=== PATIENT | female | born 1930 | race Two or more races ===

== ENCOUNTER 2022-03-11 16:21 | Inpatient (IN) | payer MEDICARE ==
[~2022-03-11] VITALS: Ht 152.4 cm; Wt 62.6 kg
--- NOTE | 2022-03-11 16:25 | NUR ---
BIB [facility] FROM HOME,C/O NAUSEA AND WEAKNESS
--- NOTE | 2022-03-11 16:30 | NUR ---
established IV line g20 right hand, draw blood sent to lab
--- NOTE | 2022-03-11 17:20 | NUR ---
covid swab taken sent to lab
[2022-03-11] MEDS ORDERED: IV NS 0.9% 1,000 ML BAG IV ONE (17:30)
--- NOTE | 2022-03-11 17:30 | NUR ---
laborer plumbing at bed side
--- NOTE | 2022-03-11 18:06 | NUR ---
uring sample obtained sent to lab .
[2022-03-11 18:08] LABS: CALCIUM, SERUM 9.1 mg/dL (8.5-10.1); CARBON DIOXIDE 27 mmol/L (21-32); CHLORIDE 100 mmol/L (98-107); CREATININE 0.9 mg/dL (0.6-1.3); GLUCOSE 113 mg/dL (74-106); POTASSIUM 3.1 mmol/L (3.5-5.1); SODIUM SERUM 138 mmol/L (136-145); UREA NITROGEN, BLOOD 17 mg/dL (7-18)
[2022-03-11 18:14] LABS: BASOPHILS # (AUTO) 0.1 K/uL (0.0-0.2); BASOPHILS % (AUTO) 0.6 % (0.0-2.0); EOSINOPHILS % (AUTO) 0.1 % (0.0-6.0); HEMATOCRIT 43 % (33-45); HEMOGLOBIN 14.5 g/dL (11.5-14.8); LYMPHOCYTES # (AUTO) 0.6 K/uL (0.8-4.8); MEAN CORPUSCULAR HGB CONC 33 g/dl (31.0-36.0); MEAN CORPUSCULAR VOLUME 89 fL (82-100); MONOCYTES # (AUTO) 0.5 K/uL (0.1-1.30); MONOCYTES % (AUTO) 4.8 % (2.0-12.0); NEUTROPHILS % (AUTO) 88.5 % (43.0-81.0); PLATELET COUNT (AUTO) 217 K/uL (150-450); WHITE BLOOD COUNT (AUTO) 10.2 K/uL (4.3-11.0)
[2022-03-11 18:20] LABS: ALANINE AMINOTRANSFERASE 41 U/L (12-78); ALBUMIN 3.6 g/dL (3.4-5.0); ALKALINE PHOSPHATASE 114 U/L (46-116); ASPARTATE AMINOTRANSFERASE 30 U/L (15-37); BILIRUBIN,DIRECT 0.3 mg/dL (0.0-0.2); BILIRUBIN,TOTAL 1.1 mg/dL (0.2-1.0); TOTAL PROTEIN, SERUM 8.1 g/dL (6.4-8.2)
[2022-03-11 19:04] LABS: BILIRUBIN,URINE NEGATIVE (NEGATIVE); COLOR,URINE YELLOW (YELLOW); LEUKOCYTE ESTERASE ,URINE SMALL (NEGATIVE); NITRITE, URINE NEGATIVE (NEGATIVE); PH,URINE 5.5 (5.0-8.0); PROTEIN,URINE NEGATIVE (NEGATIVE); UGLUCOSE NEGATIVE (NEGATIVE); UROBILINOGEN,URINE 0.2 EU/dL (0.2)
[2022-03-11 19:08] LABS: BACTERIA,URINE 2+ /HPF (None Seen); WBC,URINE 21-50 /HPF (0-3)
[2022-03-11] MEDS ORDERED: CEFTRIAXONE 1GM BAG (ER ONLY) 50 ML IV ONE ×3 (19:29→19:32)
[2022-03-11] MEDS ORDERED: CEPH500T PO (19:30)
--- NOTE | 2022-03-11 19:39 | NUR ---
RECEIVED REPORT FROM LIO HAYNES, PT CAME EARLIER WITH CC OF NAUSEA AND WEAKNESS. WITH IV ACCESS ON RIGHT FA G20; WITH ONGOING IV ANTIBIOTIC RUNNING. ATTACHED TO MONITOR. VITALS CHECKED.
--- NOTE | 2022-03-11 20:36 | NUR ---
PER TONE [phone] COVID (+)
--- NOTE | 2022-03-11 20:36 | NUR ---
DAUGHTER; [phone]
--- NOTE | 2022-03-12 00:26 | NUR ---
PT COMPLAINING OF HEADACHE. TYLENOL GIVEN.
[2022-03-12] MEDS ORDERED: TEMAZEPAM 15 MG CAPSULE PO PRN (00:30)
[2022-03-12] MEDS ORDERED: ONDANSETRON HCL/PF 4 MG/2 ML VIAL IVP PRN (00:30)
[2022-03-12] MEDS ORDERED: MAG HYDROX/AL HYDROX/SIMETH 30 ML UDC PO PRN (00:30)
[2022-03-12] MEDS ORDERED: MORPHINE SULFATE INJ 2 MG/ML DISP.SYRIN IV PRN (00:30)
[2022-03-12] MEDS ORDERED: ACETAMINOPHEN 325 MG TABLET PO ONE (00:30)
[2022-03-12] MEDS ORDERED: MAGNESIUM HYDROXIDE 30 ML UDC PO PRN (00:30)
[2022-03-12] MEDS ORDERED: Z GUARD REMEDY 4 OZ OINT TP PRN (00:30)
[2022-03-12] MEDS ORDERED: HYDROCODONE/APAP 5/325MG TABLET PO PRN (00:30)
--- NOTE | 2022-03-12 02:24 | NUR ---
TRIED TO GIVE REPORT, LIO WHEELER CANNOT RECEIVE REPORT YET.
--- NOTE | 2022-03-12 02:34 | NUR ---
REPORT GIVEN TO LIAM ON FIRST FLOOR
--- NOTE | 2022-03-12 02:43 | NUR ---
PT TRANFERRED TO 109 VIA ACLS PROTOCOL. VSS. ALL BELONGINGS WITH PT.
--- NOTE | 2022-03-12 02:45 | NUR ---
INSPECTOR LINE NOTE 0245 RECEIVED PATIENT FROM ER VIA WHEELCHAIR ACCOMPANIED BY RN, AO X 4, ABLE TO MAKE NEEDS KNOWN, SATURATION AT 99% ON RA, HR IS 101. IV LINE AT R HAND #20G INTACT, PATENT AND FLUSHING WELL, ADMISSION CARE RENDERED, SKIN INTACT, SAFETY MEASURES IN PLACE, BED IS LOCKED AND AT LOWEST POSITION, BED ALARM ON, CALL LIGHT WITHIN REACH OF PATIENT AND INSTRUCTED TO CALL FOR ASSISTANCE, WILL CONT TO MONITOR AND CARRY OUT MD ORDERS.
[2022-03-12] MEDS: IV NS 0.9% 1,000 ML IV PRN (02:57)
[2022-03-12 04:00] VITALS: BP 137/62
--- NOTE | 2022-03-12 06:46 | NUR ---
MS RN CLOSING NOTE PT REMAINS IN BED SLEEPING BUT EASILY AROUSABLE TO TOUCH AND VOICE, ALERT AND ORIENTED X 4. VERBALLY RESPONSIVE. ABLE TO MAKE NEEDS KNOWN. PT ON ROOM AIR TOLERATING WELL. NO COMPLAINTS OF PAIN OR DISCOMFORT. PT HAS RIGHT HAND #20 GAUGE IV LINE INTACT, PATENT AND FLUSHING WELL. ALL DUE MEDS GIVEN, KEPT DRY AND CLEAN, ALL SAFETY PRECAUTIONS IN PLACE. BED IS LOCKED AND IN LOWEST POSITION, 2 SIDE RAILS UP, CALL LIGHT WITHIN REACH. WILL ENDORSE TO AM SHIFT NURSE FOR CONTINUITY OF CARE.
--- NOTE | 2022-03-12 07:24 | NUR ---
MS RN NOTE PATIENT IN BED , RESTING COMFORTABLY AT THIS TIME, ON RA NO SOB NOTED , RT HAND HL INTACT,AND IN PLACE, ON IVF ORDERED , BED IN LOWEST AND LOCKED POSITION , SAFETY MEASURE IMPLEMENTED, CALL LIGHT WITHIN REACH, ALL NEEDS ATTENDED, WILL CONT TO MONITOR CLOSELY
[2022-03-12] MEDS: PANTOPRAZOLE 40 MG TABLET.DR PO SCH (07:43)
[2022-03-12] MEDS ORDERED: LOSA50TA39 PO (08:22)
[2022-03-12 09:22] VITALS: BP 127/78
--- NOTE | 2022-03-12 10:37 | NUR ---
telephony engineer note pt at bedside patient, able to ambulate well , will cont to monitor
--- NOTE | 2022-03-12 13:00 | NUR ---
ms rn note spoke with [employer] rust storage architect will resume home Meds
[2022-03-12] MEDS ORDERED: HYDR25TA4 PO (13:32)
[2022-03-12] MEDS ORDERED: ALEN70TA80 PO (13:32)
[2022-03-12] MEDS ORDERED: LEVO50TA8 PO (13:32)
[2022-03-12] MEDS: ACETAMINOPHEN 325 MG TABLET PO PRN ×2 (15:24→23:11)
[2022-03-12 16:00] VITALS: BP 132/63
[2022-03-12] MEDS: LOSARTAN POTASSIUM 50 MG TABLET PO SCH (16:21)
--- NOTE | 2022-03-12 18:24 | NUR ---
ms rn note patient in bed , alert oriented, no sob noted at this time. Tylenol was administered at 15:24 for headache, which has subsided now. Noted dry cough occasionally. No other discomfort. Continue IVF as ordered. Patient resting comfortably and is having dinner now. Keep clean and dry. Safety measures implemented with call light within reach. PCR was taken and sent to laboratory. Will continue to monitor.
[2022-03-12 20:00] VITALS: BP 110/65
[2022-03-12] MEDS: CEFTRIAXONE 1 G in IV D5W 50 ML IV SCH (23:04)
[2022-03-13 04:00] VITALS: BP 140/73
[2022-03-13] MEDS: ACETAMINOPHEN 325 MG TABLET PO PRN ×2 (06:52→20:39)
[2022-03-13] MEDS: IV NS 0.9% 1,000 ML IV PRN ×2 (06:53→19:50)
--- NOTE | 2022-03-13 07:00 | NUR ---
RN CLOSING NOTE: ALERT TIMES FOUR. UNLABORED BREATHING SATING AT 94 AT ROOM AIR. ON IVF NS 75 ML/HR. IV ON RIGHT FOREARM FOREARM DISLODGED, AND REMOVED TIP INTACT. NEW IV INSERTED ON LEFT HAND G 22. TURNED AND REPOSITIONED WITH PILLOWS. KEPT CLEAN AND COMFORTABLE. HOB ELEVATED SEMI-FOWLERS POSITION. BILATERAL HALF SIDE RAILS UP X2. NO S/E OF ABX. BED IN LOW POSITION, BED EXIT ALARM, LOCKED, CALL LIGHT IN REACH.
[2022-03-13 07:27] LABS: CARBON DIOXIDE 26 mmol/L (21-32); CHLORIDE 106 mmol/L (98-107); CREATININE 0.8 mg/dL (0.6-1.3); GLUCOSE 91 mg/dL (74-106); PHOSPHORUS 2.4 mg/dL (2.5-4.9); SODIUM SERUM 142 mmol/L (136-145); UREA NITROGEN, BLOOD 10 mg/dL (7-18)
[2022-03-13 07:40] LABS: T4 (THYROXINE) 7.6 ug/dL (4.7-13.3); THYROID STIMULATING HORMONE 10.843 uIU/mL (0.358-3.74)
[2022-03-13 08:16] LABS: BASOPHILS # (AUTO) 0.1 K/uL (0.0-0.2); BASOPHILS % (AUTO) 0.9 % (0.0-2.0); EOSINOPHILS % (AUTO) 1.4 % (0.0-6.0); HEMATOCRIT 39 % (33-45); HEMOGLOBIN 12.9 g/dL (11.5-14.8); LYMPHOCYTES # (AUTO) 1.3 K/uL (0.8-4.8); MEAN CORPUSCULAR HGB CONC 33 g/dl (31.0-36.0); MEAN CORPUSCULAR VOLUME 89 fL (82-100); MONOCYTES # (AUTO) 0.8 K/uL (0.1-1.30); MONOCYTES % (AUTO) 11.5 % (2.0-12.0); NEUTROPHILS # (AUTO) 4.8 K/uL (1.8-8.9); NEUTROPHILS % (AUTO) 68.2 % (43.0-81.0); PLATELET COUNT (AUTO) 196 K/uL (150-450); RED BLOOD CELL COUNT(AUTO) 4.32 MIL/uL (4.0-5.2); WHITE BLOOD COUNT (AUTO) 7.1 K/uL (4.3-11.0)
[2022-03-13] MEDS: LEVOTHYROXINE SODIUM 50 MCG TABLET PO SCH (08:26)
[2022-03-13] MEDS: PANTOPRAZOLE 40 MG TABLET.DR PO SCH (08:26)
[2022-03-13] MEDS: LOSARTAN POTASSIUM 50 MG TABLET PO SCH ×2 (08:27→16:09)
[2022-03-13] MEDS: HYDROCHLOROTHIAZIDE 25 MG TABLET PO SCH (08:28)
[2022-03-13 08:35] LABS: POTASSIUM 2.8 mmol/L (3.5-5.1)
[2022-03-13] MEDS: POTASSIUM CHLORIDE 20 MEQ TAB.PRT.SR PO SCH ×2 (08:50→12:05)
--- NOTE | 2022-03-13 08:50 | NUR ---
MS RN OPENING NOTE PT SLEEPING IN BED, ALERT AND ORIENTED X 4. VERBALLY RESPONSIVE. ABLE TO MAKE NEEDS KNOWN. PT ON ROOM AIR TOLERATING WELL. NO COMPLAINTS OF PAIN OR DISCOMFORT AT THIS MOMENT. PATIENT NOTED WITH LEFT HAND PIV, PATENT AND INTACT, FLUSHING WELL WITH 75ML/HR 0.9 NS IV FLUIDS RUNNING. ALL DUE MEDS GIVEN. NEW ORDER POTASSIIUM GIVEN. PATIENT AMBULATORY TO THE BATHROOM WITH SUPERVISION, ASSISTED PATIENT TO THE BATHROOM. NO C/O OF DIZZINESS, NO FEVER NOTED. KEPT DRY AND CLEAN, ALL SAFETY PRECAUTIONS IN PLACE. BED IS LOCKED AND IN LOWEST POSITION, 2 SIDE RAILS UP, CALL LIGHT WITHIN REACH. WILL CONTINUE TO MONITOR PATIENT.
[2022-03-13 12:00] VITALS: BP 130/63
[2022-03-13] MEDS ORDERED: K PHOS NEUTRAL 250 MG TABLET PO ONE (13:00)
--- NOTE | 2022-03-13 17:55 | NUR ---
RN NOTES INFORMED KYE JOURNEYMAN PRESS OPERATOR OF PCR RESULT OF POSITIVE, WITH NEW ORDER TO CONTINUE CONTACT ISOLATION, NOTED AND CARRIED OUT, INFORMED CHARGE NURSE. NO FEVER NOTED, NO C/O OF HEADACHE, DENIES ANY PAIN AT THIS MOMENT. WILL CONTINUE PLAN OF CARE.
--- NOTE | 2022-03-13 18:15 | NUR ---
RN CLOSING NOTE: PATIENT ALERT AND VERBALLY RESPONSIVE. ON RA TOLERATING WELL @ 96%. NO SOB NOTED, NOT IN DISTRESS, NO FACIAL GRIMACING NOTED. DENIES ANY PAIN. NO FEVER NOTED. IV ON LEFT HAND PIV NOTED PATENT AND INTACT, FLUSHES WELL WITH IVF NS RUNNING AT 75ML/HR. PATIENT ABLE TO AMBULATE TO THE BATHROOM. KEPT CLEAN AND COMFORTABLE. . BILATERAL HALF SIDE RAILS UP X2. NO S/E OF ABX. BED IN LOW POSITION, BED EXIT ALARM, LOCKED, CALL LIGHT IN REACH. CONTACT PRECAUTION MAINTAINED. WILL CONTINUE PLAN OF CARE. Addendum: 03/13/22 at 1819 by JANETTE REDMAN RN WILL ENDORSE TO GAGE DESIGNER NURSE FOR ELISEO.
--- NOTE | 2022-03-13 19:25 | NUR ---
RN OPEN NOTE: ALERT AND ORIENTED TIMES FOUR. UNLABORED BREATHING AT ROOM AIR. IV ON LEFT HAND 22 G PATENT WITH NO S/S OF COMPLICATIONS. IVF WITH NS 75 ML/HR. DENIES PAIN OR DISCOMFORT. REPOSITIONED WITH PILLOWS. HOB ELEVATED SEMI-FOWLERS POSITION. BILATERAL HALF SIDE RAILS UP X2. BED IN LOW POSITION, LOCKED, WITH EXIT ALARM ON. CALL LIGHT IN REACH. ISOLATION PRECAUTIONS MAINTAINED.
[2022-03-13] MEDS: CEFTRIAXONE 1 G in IV D5W 50 ML IV SCH (19:52)
[2022-03-13 20:00] VITALS: BP 153/78
[2022-03-14 04:00] VITALS: BP 153/82
[2022-03-14] MEDS: ACETAMINOPHEN 325 MG TABLET PO PRN ×3 (05:35→19:15)
--- NOTE | 2022-03-14 06:32 | NUR ---
RN CLOSING NOTE: ALERT AND ORIENTED TIMES FOUR. UNLABORED BREATHING AT ROOM AIR. IV ON LEFT HAND 22 G PATENT WITH NO S/S OF COMPLICATIONS. IVF WITH NS 75 ML/HR. MEDICATED ORDERED FOR HEADACHE X2 WITH TYLENOL PRN AND EFFECTIVE. SELF REPOSITIONED, ABLE TO AMBULATE TO BATHROOM WIHT STAND BY ASSIST. HOB ELEVATED SEMI-FOWLERS POSITION. BILATERAL HALF SIDE RAILS UP X2. BED IN LOW POSITION, LOCKED, WITH EXIT ALARM ON. CALL LIGHT IN REACH. ISOLATION PRECAUTIONS MAINTAINED.
[2022-03-14 06:55] LABS: BASOPHILS # (AUTO) 0.1 K/uL (0.0-0.2); BASOPHILS % (AUTO) 1.3 % (0.0-2.0); EOSINOPHILS % (AUTO) 3.2 % (0.0-6.0); HEMATOCRIT 40 % (33-45); HEMOGLOBIN 13.4 g/dL (11.5-14.8); LYMPHOCYTES # (AUTO) 1.4 K/uL (0.8-4.8); MEAN CORPUSCULAR HGB CONC 34 g/dl (31.0-36.0); MEAN CORPUSCULAR VOLUME 89 fL (82-100); MONOCYTES # (AUTO) 0.6 K/uL (0.1-1.30); MONOCYTES % (AUTO) 12.4 % (2.0-12.0); NEUTROPHILS # (AUTO) 2.9 K/uL (1.8-8.9); NEUTROPHILS % (AUTO) 56.1 % (43.0-81.0); PLATELET COUNT (AUTO) 210 K/uL (150-450); RED BLOOD CELL COUNT(AUTO) 4.45 MIL/uL (4.0-5.2); WHITE BLOOD COUNT (AUTO) 5.1 K/uL (4.3-11.0)
[2022-03-14 07:02] LABS: CREATININE 0.7 mg/dL (0.6-1.3); MAGNESIUM 2.1 mg/dL (1.8-2.4); PHOSPHORUS 2.4 mg/dL (2.5-4.9); POTASSIUM 3.5 mmol/L (3.5-5.1)
--- NOTE | 2022-03-14 07:56 | NUR ---
MS RN NOTE: ALERT AND ORIENTED TIMES FOUR. UNLABORED BREATHING AT ROOM AIR. IV ON LEFT HAND 22 G PATENT WITH NO S/S OF COMPLICATIONS. IVF WITH NS 75 ML/HR. , ABLE TO AMBULATE TO BATHROOM WITH STAND BY ASSIST. HOB ELEVATED SEMI-FOWLERS POSITION. BILATERAL HALF SIDE RAILS UP X2. BED IN LOW POSITION, LOCKED, WITH EXIT ALARM ON. CALL LIGHT IN REACH. ISOLATION PRECAUTIONS MAINTAINED.
[2022-03-14] MEDS: LOSARTAN POTASSIUM 50 MG TABLET PO SCH ×2 (09:04→17:18)
[2022-03-14] MEDS: PANTOPRAZOLE 40 MG TABLET.DR PO SCH (09:04)
[2022-03-14] MEDS: LEVOTHYROXINE SODIUM 50 MCG TABLET PO SCH (09:05)
[2022-03-14] MEDS: HYDROCHLOROTHIAZIDE 25 MG TABLET PO SCH (09:05)
[2022-03-14] MEDS ORDERED: K PHOS NEUTRAL 250 MG TABLET PO ONE (11:00)
[2022-03-14] MEDS: ENOXAPARIN SODIUM 40 MG/0.4 ML DISP.SYRIN SQ SCH (11:02)
--- NOTE | 2022-03-14 11:16 | NUR ---
ms rn note rounds made, resting comfortably ,on ivf will monitor co headache earlier ,Tylenol given
[2022-03-14] MEDS: IV NS 0.9% 1,000 ML IV PRN (11:39)
--- NOTE | 2022-03-14 13:30 | NUR ---
MS RN NOTE HAVING DINNER, ON IVF NOT IN DISTRESS
[2022-03-14 16:00] VITALS: BP 139/76
--- NOTE | 2022-03-14 17:41 | NUR ---
MS RN NOTE PATIENT RESTING COMFORTABLY IN BED ,PER [facility] FAMILY MEDICINE PHYSICIAN ASSISTANT OK TO DC IVF ,ORDER CARRIED OUT
--- NOTE | 2022-03-14 18:47 | NUR ---
MS RN NOTE PATIENT IN BED ,ALERT ORIENTED ,ON RA ,NO SOB NOTED ,NOT IN DISTRESS, SAFETY MEASURE IMPLEMENTED ,BED IN LOWEST AND LOCKED POSITION
--- NOTE | 2022-03-14 19:10 | NUR ---
RN NOTES RECEIVED REPORT FROM MORNING RN. PATIENT IN BED A/O X3 ABLE TO MAKE NEEDS KNOWN. ON ROOM AIR SATING 94% NO SOB NO DISTRESS NOTED AT THIS TIME. WITH IV ACCESS AT L HAND # 22 PATENT FLUSHES WELL. ALL SAFETY MEASURES IN PLACE AT ALL TIMES. HOB ELEVATED. CALL LIGHT WITHIN REACH. ISOLATION PRECAUTION IN PLACE AT ALL TIMES. WILL CLOSELY MONITOR THE PATIENT
[2022-03-14 20:00] VITALS: BP 137/78
[2022-03-14] MEDS: CEFTRIAXONE 1 G in IV D5W 50 ML IV SCH (20:36)
[2022-03-15 04:00] VITALS: BP 147/66
[2022-03-15] MEDS: ACETAMINOPHEN 325 MG TABLET PO PRN (05:17)
--- NOTE | 2022-03-15 06:49 | NUR ---
RN NOTES PATIENT REMAINS STABLE NO SIGNIFICANT CHANGES IN HEALTH CONDITION. ALL DUE MEDS GIVEN ORDERED. ALL SAFETY MEASURES IN PLACE AT ALL TIMES. HOB ELEVATED. CALL LIGHT WITHIN REACH WILL ENDORSED TO MORNING SHIFT FOR ELISEO
--- NOTE | 2022-03-15 07:37 | NUR ---
RN CLOSING NOTE: PATIENT IS ALERT AND ORIENTED TIMES FOUR. UNLABORED BREATHING AT ROOM AIR. IV ON LEFT HAND 22 G PATENT WITH NO S/S OF COMPLICATIONS. IVF WITH NS 75 ML/HR. SELF REPOSITIONED, ABLE TO AMBULATE TO BATHROOM WIHT STAND BY ASSIST. HOB ELEVATED SEMI-FOWLERS POSITION. BILATERAL HALF SIDE RAILS UP X2. BED IN LOW POSITION, LOCKED, WITH EXIT ALARM ON. CALL LIGHT IN REACH. ISOLATION PRECAUTIONS MAINTAINED. WILL CONTINUE TO MONITOR
[2022-03-15] MEDS: LEVOTHYROXINE SODIUM 50 MCG TABLET PO SCH (07:43)
[2022-03-15] MEDS: PANTOPRAZOLE 40 MG TABLET.DR PO SCH (07:43)
[2022-03-15] MEDS: LOSARTAN POTASSIUM 50 MG TABLET PO SCH (10:03)
[2022-03-15] MEDS: HYDROCHLOROTHIAZIDE 25 MG TABLET PO SCH (10:03)
[2022-03-15] MEDS: ENOXAPARIN SODIUM 40 MG/0.4 ML DISP.SYRIN SQ SCH (10:05)
[2022-03-15 12:00] VITALS: BP 144/72
[2022-03-15] MEDS ORDERED: SENNOSIDES 8.6 MG TABLET PO ONE (12:30)
[2022-03-15] MEDS ORDERED: AZIT250T PO (12:32)
[2022-03-15] MEDS ORDERED: CEPH500C2 PO (12:32)
--- NOTE | 2022-03-15 15:54 | NUR ---
PATIENT WAS DISCHARGED FROM [facility] DUE TO GOT AT STABLE CONDITION , DISCHARGE INSTRUCTIONS PROVIDED TO THE PATIENT VERBALLY AND IN [place] , PATIENT VERBALIZED UNDERSTANDING .PATIENT IS GOING TO [facility]ICINE [facility] REPORT WAS GIVEN TO THE RN SAEED .
[2022-03-17] MEDS ORDERED: ALENDRONATE 70 MG TABLET PO SCH (07:30)
== END 2022-03-15 15:39 | DRG 689 ==
LOC: ER 16:24 → MEDSG1 03-12 01:34
PROVIDERS: ADMIT Nurse Practitioner Acute Care; ATTEND Nurse Practitioner Acute Care
DX: N10 Acute pyelonephritis (principal); J12.82 Pneumonia due to coronavirus disease 2019; U07.1 COVID-19; N39.0 Urinary tract infection, site not specified; Z20.822 Contact with and (suspected) exposure to COVID-19; E87.6 Hypokalemia; I10 Essential (primary) hypertension; E03.9 Hypothyroidism, unspecified
CPT/HCPCS: 36415; 71045-TC; 80048-TC; 80076-TC; 81001; 83605-TC; 83735-TC; 84100-TC; 84436-TC; 84443-TC; 84484-TC; 85025-TC; 85378-TC; 85730-TC; 86140-TC; 87040-TC; 87081-TC; 87086-TC; 87186-TC; 97110-TC; 97116-TC; 97530-TC; C9803; G0378; J0696; J1650; J3490; J7030; J7060; U0003